=== PATIENT | male | born 1980 | race African-American/Black ===

== ENCOUNTER 2017-05-18 12:26 | Inpatient (IN) | payer BC, MEDICAID, SELFPAY ==
[~2017-05-18] VITALS: Ht 182.9 cm; Wt 92.7 kg
[2017-05-18 13:49] LABS: MEAN CORPUSCULAR HEMOGLOBIN 29.6 pg (27.0-33.0); MEAN CORPUSCULAR VOLUME 87.2 fl (80.0-96.0); RED CELL DISTRIBUTION WIDTH 12.8 % (11.5-14.5); WHITE BLOOD COUNT 5.9 K/mm3 (4.0-10.0)
[2017-05-18 14:18] LABS: METHADONE URINE NEGATIVE (NEGATIVE)
[2017-05-18 14:23] LABS: ALBUMIN 4.1 GM/DL (3.2-5.2); ALBUMIN/GLOBULIN RATIO 1.32 (1.00-1.93); ALKALINE PHOSPHATASE 67 U/L (45-117); ALT/SGPT 25 U/L (12-78); ANION GAP 9 MEQ/L (8-16); AST/SGOT 9 U/L (15-37); BILIRUBIN,DIRECT 0.1 MG/DL (0.0-0.2); BILIRUBIN,TOTAL 0.4 MG/DL (0.2-1.0); BLOOD UREA NITROGEN 9 MG/DL (7-18); CALCIUM LEVEL 9.3 MG/DL (8.5-10.1); CARBON DIOXIDE LEVEL 27 MEQ/L (21-32); CHLORIDE LEVEL 106 MEQ/L (98-107); CREATININE FOR GFR 1.32 MG/DL (0.70-1.30); GLOMERULAR FILTRATION RATE > 60.0 (>60); GLUCOSE, FASTING 102 MG/DL (70-105); POTASSIUM SERUM 3.8 MEQ/L (3.5-5.1); SODIUM LEVEL 142 MEQ/L (136-145); TOTAL PROTEIN 7.2 GM/DL (6.4-8.2)
[2017-05-19 01:08] VITALS: BP 171/96
[2017-05-19] MEDS ORDERED: ACETAMINOPHEN TAB 650MG DOSE (2X325MG) PO PRN (01:30)
[2017-05-19] MEDS ORDERED: traZODone 50 MG TAB PO PRN (01:30)
[2017-05-19] MEDS ORDERED: MOM 30ML SUSPENSION UDC PO PRN (01:30)
[2017-05-19] MEDS: MAALOX 30 ML SUSP *UDC PO PRN (01:47)
[2017-05-19 06:24] VITALS: BP 147/65
[2017-05-19] MEDS: LOTRISONE CREAM 15 GM (BETAMETH/CLOTRIMAZOLE) TOP SCH ×2 (09:51→21:34)
[2017-05-19 18:00] VITALS: BP 152/83
[2017-05-19 21:00] VITALS: BP 148/82
[2017-05-20 06:53] VITALS: BP 156/92
[2017-05-20] MEDS: LOTRISONE CREAM 15 GM (BETAMETH/CLOTRIMAZOLE) TOP SCH ×2 (08:19→20:18)
[2017-05-20 18:00] VITALS: BP 145/78
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
[2017-05-21 07:14] VITALS: BP 146/90
[2017-05-21] MEDS: LOTRISONE CREAM 15 GM (BETAMETH/CLOTRIMAZOLE) TOP SCH ×2 (08:14→20:15)
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
[2017-05-21 18:10] VITALS: BP 148/90
[2017-05-22 06:19] VITALS: BP 155/76
[2017-05-22] MEDS: LOTRISONE CREAM 15 GM (BETAMETH/CLOTRIMAZOLE) TOP SCH (08:19)
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
[2017-05-22] MEDS: MAALOX 30 ML SUSP *UDC PO PRN (15:29)
[2017-05-22 18:09] VITALS: BP 143/67
[2017-05-22] MEDS: CLOTRIMAZOLE 1% TOPICAL CREAM 30GM TOP SCH (21:27)
[2017-05-23 06:42] VITALS: BP 147/94
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
[2017-05-23] MEDS: CLOTRIMAZOLE 1% TOPICAL CREAM 30GM TOP SCH (09:33)
[2017-05-23] MEDS ORDERED: CLOTR1CR TOP (10:32)
== END 2017-05-23 11:00 | disposition home or self-care (01) | DRG 754 ==
LOC: M ED 12:26 → M ED INP 19:19 → M PSY 05-19 01:10
PROVIDERS: ADMIT Psychiatry & Neurology Psychiatry; ATTEND Psychiatry & Neurology Psychiatry
DX: F43.21 Adjustment disorder with depressed mood (principal); F32.9 Major depressive disorder, single episode, unspecified; B37.2 Candidiasis of skin and nail; Z91.040 Latex allergy status; Z63.5 Disruption of family by separation and divorce

== ENCOUNTER 2020-12-22 14:54 | Emergency (ER) | payer MEDICAID, SELFPAY ==
[~2020-12-22] VITALS: Ht 182.9 cm; Wt 90.9 kg
[~2020-12-22 14:54] MED LIST: CLOT1CRE27 TOP
[2020-12-22] MEDS ORDERED: KETOROLAC 30 MG/ML 1ML VIAL IV ONE (17:10)
[2020-12-22] MEDS ORDERED: ONDANSETRON 4MG/2ML VIAL IV ONE (17:10)
[2020-12-22] MEDS ORDERED: NS 1,000 ML IV ONE ×2 (17:10→19:10)
--- NOTE | 2020-12-22 17:47 | REP ---
INDICATION: sob. COMPARISON: None. TECHNIQUE: AP portable seated chest FINDINGS: The lung maddox are well inflated there is no pleural effusion, dense consolidation, atelectasis or mass. No significant interstitial changes. The heart, mediastinal hilar contours are normal. The aorta and airway are intact. Bony thorax shows no focal lesion. There is no free air under the diaphragm. IMPRESSION: No acute cardiopulmonary disease. IMPRESSION: See above. <Electronically signed by Nathanael Mar > 12/22/20 [id number]
[2020-12-22 17:59] LABS: BASO % 0.1 % (0.0-1.0); HEMATOCRIT 49.9 % (42.0-52.0); HEMOGLOBIN 16.8 g/dl (13.5-17.5); LYMPH # 0.9 10^3/uL (1.5-5.0); LYMPH % 9.6 % (24.0-44.0); MEAN CORPUSCULAR HEMOGLOBIN 27.9 pg (27.0-33.0); MEAN CORPUSCULAR HGB CONC 33.7 g/dl (32.0-36.5); MEAN CORPUSCULAR VOLUME 82.9 fl (80.0-96.0); MONO # 0.3 10^3/uL (0.0-0.8); NEUTROPHILS # 8.5 10^3/uL (1.5-8.5); NEUTROPHILS % 86.6 % (36.0-66.0); PLATELET COUNT, AUTOMATED 247 10^3/uL (150-450); RED BLOOD COUNT 6.02 10^6/uL (4.30-6.10); WHITE BLOOD COUNT 9.8 10^3/uL (4.0-10.0)
[2020-12-22] MEDS ORDERED: METOCLOPRAMIDE INJ 10MG/2ML VIAL (J2765 PER 1) IV ONE (18:25)
[2020-12-22 18:28] LABS: ALBUMIN 4.5 GM/DL (3.2-5.2); ALT/SGPT 31 U/L (12-78); BILIRUBIN,DIRECT 0.2 MG/DL (0.0-0.2); BILIRUBIN,TOTAL 0.6 MG/DL (0.2-1.0); BLOOD UREA NITROGEN 14 MG/DL (7-18); CARBON DIOXIDE LEVEL 22 MEQ/L (21-32); CHLORIDE LEVEL 108 MEQ/L (98-107); CREATININE FOR GFR 1.44 MG/DL (0.70-1.30); GLOMERULAR FILTRATION RATE > 60.0 (>60); GLUCOSE, FASTING 112 MG/DL (70-100); LIPASE 69 U/L (73-393); POTASSIUM SERUM 3.8 MEQ/L (3.5-5.1); SODIUM LEVEL 139 MEQ/L (136-145); TOTAL PROTEIN 7.8 GM/DL (6.4-8.2)
[2020-12-22] MEDS ORDERED: ISOVUE-370 76% 100ML VIAL As Ordered ONE (18:47)
[2020-12-22] MEDS ORDERED: PROMETHAZINE INJ 25 MG/ML VIAL (J2550) IV ONE (19:15)
--- NOTE | 2020-12-22 20:30 | REPVR ---
PROCEDURE INFORMATION: Exam: CT Abdomen And Pelvis With Contrast Exam date and time: 12/22/2020 7:48 PM Age: 40 years old Clinical indication: Abdominal pain; Localized; Left lower quadrant (llq); Additional info: Llq pain TECHNIQUE: Imaging protocol: Computed tomography of the abdomen and pelvis with contrast. Radiation optimization: All CT scans at this facility use at least one of these dose optimization techniques: automated exposure control; mA and/or kV adjustment per patient size (includes targeted exams where dose is matched to clinical indication); or iterative reconstruction. Contrast material: ISOVUE 370; Contrast volume: 100 ml; Contrast route: INTRAVENOUS (IV); COMPARISON: No relevant prior studies available. FINDINGS: Liver: Normal. No mass. Gallbladder and bile ducts: Normal. No calcified stones. No ductal dilation. Pancreas: Normal. No ductal dilation. Spleen: Normal. No splenomegaly. Adrenal glands: Normal. No mass. Kidneys and ureters: Normal. No hydronephrosis. Stomach and bowel: Unremarkable. No obstruction. No mucosal thickening. Appendix: Normal appendix. Intraperitoneal space: Unremarkable. No free air. No significant fluid collection. Vasculature: Unremarkable. No abdominal aortic aneurysm. Lymph nodes: Unremarkable. No enlarged lymph nodes. Urinary bladder: Unremarkable as visualized. Reproductive: Unremarkable as visualized. Bones/joints: Unremarkable. No acute fracture. Soft tissues: Small fat containing umbilical hernia. IMPRESSION: No acute abnormality. Electronically signed by: Grey Chahal On 12/22/2020 20:31:05 PM
[2020-12-22] MEDS ORDERED: ONDA4TAB6 PO (20:43)
[2020-12-22 21:10] VITALS: BP 142/80
== END 2020-12-22 21:13 | disposition home or self-care (01) ==
LOC: M ED 14:54
DX: N17.9 Acute kidney failure, unspecified (principal); F33.9 Major depressive disorder, recurrent, unspecified; F41.9 Anxiety disorder, unspecified; F63.9 Impulse disorder, unspecified
CPT/HCPCS: 71045; 74177; 80048; 80076; 81001; 83690; 85025; 96361; 96374; 96375; 99284; J1885; J2405; J2765; Q9967; U0003

== ENCOUNTER 2020-12-24 09:48 | Emergency (ER) | payer MEDICAID, SELFPAY ==
[~2020-12-24] VITALS: Ht 182.9 cm; Wt 90.9 kg
[~2020-12-24 09:48] MED LIST changes: +ONDA4TAB6 PO
[2020-12-24] MEDS ORDERED: NS 1,000 ML IV ONE (10:05)
[2020-12-24] MEDS ORDERED: HALOPERIDOL 5MG/ML VIAL (J1630 PER 1) IV ONE (10:10)
--- OUTSIDE RECORDS SUMMARY | 2020-12-24 10:14 | CCD ---
Author Author [facility] Organization [facility] Address Unknown Phone Unavailable Support Name Relationship Address Phone CRISTAL ROCA Next Of Kin [address] [place] [address] KALLIE CHIROPRATICE Next Of Kin [address] [place] [address] DWAYNE VAILRA Next Of Kin [address] [place] [address] ATLAS [employer] Next Of Kin [place], [place] [id number] UE Next Of Kin Unknown Unavailable AI VAIL Next Of Kin [address] [facility], [address] Re-disclosure Warning The records that you are about to access may contain information from federally-assisted alcohol or drug abuse programs. If such information is present, then the following federally mandated warning applies: This information has been disclosed to you from records protected by federal confidentiality rules (42 CFR part 2). The federal rules prohibit you from making any further disclosure of this information unless further disclosure is expressly permitted by the written consent of the person to whom it pertains or as otherwise permitted by 42 CFR part 2. A general authorization for the release of medical or other information is NOT sufficient for this purpose. The Federal rules restrict any use of the information to criminally investigate or prosecute any alcohol or drug abuse patient.The records that you are about to access may contain highly sensitive health information, the redisclosure of which is protected by Article 27-F of the [place] State Public Health law. If you continue you may have access to information: Regarding HIV / AIDS; Provided by facilities licensed or operated by the [facility] of Mental Health; or Provided by the [facility] for People With Developmental Disabilities. If such information is present, then the following [facility] mandated warning applies: This information has been disclosed to you from confidential records which are protected by state law. State law prohibits you from making any further disclosure of this information without the specific written consent of the person to whom it pertains, or as otherwise permitted by law. Any unauthorized further disclosure in violation of state law may result in a fine or usp sentence or both. A general authorization for the release of medical or other information is NOT sufficient authorization for further disc losure. Family History Family Member Name Family Member Gender Family Member Status Date o f Status Description Data Source(s) Unknown Female Problem MEDENT ([facility]) Unknown Unknown Problem [facility] ([facility]) Insurance Providers Payer name Policy type / Coverage type Policy ID Covered alliance party ID Covered alliance party's relationship to [place] Policy [place] Plan Information SELF PAY ONLY [id number] SP [id number] ELOISA [id number] SP [id number] MEDICAID [id number] SP [id number] [place] [id number] SPO VYS [id number] [place] WATN PPO 302/[id number] BS [place] Medigap Part B Family Dependent BS [place] Medigap Part B Self BS [place] Commercial Family Dependent [place] BC [id number] SPO [id number] UNITED HEALTHCARE MEDICAID MCD HMO [id number] S [id number] [facility] Health Maintenance Organization (HMO) Self SREE DISCT 40% OF CAP CHGS SP UNAVAILABLE S UNAVAILABLE SELF PAY SP [id number] S [id number] Results ID Date Data Source [id number] 06/03/2020 12:00:00 AM EDT [facility] Name Value Range Interpretation Code Description Data Nuria rce(s) Supporting Document(s) SARS coronavirus 2 RNA [Presence] in Res piratory specimen by TESSIE with probe detection [facility] This lab was ordered by Chlee Gleason and reported by [facility]. Procedure
--- OUTSIDE RECORDS SUMMARY | 2020-12-24 10:17 | CCD ---
Author Author [facility] Organization [facility] Address Unknown Phone Unavailable Support Name Relationship Address Phone CRISTAL ROCA Next Of Kin [address] [place] [address] KALLIE CHIROPRATICE Next Of Kin [address] [place] [address] DWAYNE VAILRA Next Of Kin [address] [place] [address] [employer] Next Of Kin [place], [place] [id number] UE Next Of Kin Unknown Unavailable AI VAIL Next Of Kin [address] [facility], [address] Re-disclosure Warning The records that [...] is protected by Article 27-F of the [place] Public Health law. If you continue you may have access to information: Regarding HIV / AIDS; Provided by facilities licensed or operated by the [facility] Office of Mental Health; or Provided by the [facility] Office for People With Developmental Disabilities. If such information is present, then the following [facility] mandated warning applies: This information has been [...] law may result in a fine or halfway sentence or both. A general authorization for [...] type / Coverage type Policy ID Covered constitution party ID Covered constitution party's relationship to [place] Policy [place] Plan Information SELF PAY ONLY [id number] SP [id number] ELOISA [id number] SP [id number] MEDICAID [id number] SP [id number] [employer] [place] [id number] SPO VYS [id number] BCBS [place] WATN PPO 302/[id number] BS [place] Medigap Part B Family Dependent BS [place] Medigap Part B Self BS [place] Commercial Family Dependent BC[place] BC [id number] SPO [id number] [employer] MEDICAID [id number] HMO [id number] S [id number] [facility] Maintenance Organization (HMO) Self SREE DISCT 40% OF CAP CHGS SP UNAVAILABLE S UNAVAILABLE SELF PAY SP [id number] S [id number] Results ID Date Data Source [id number] 06/03/2020 12:00:00 AM EDT [facility] Name Value Range Interpretation Code Description Data Nuria rce(s) Supporting Document(s) SARS coronavirus 2 RNA [Presence] in Res piratory specimen by TESSIE with probe detection [facility] This lab was ordered by Chele Gleason and reported by [facility]. Procedure
[2020-12-24 10:59] LABS: ALBUMIN 4.3 GM/DL (3.2-5.2); BILIRUBIN,DIRECT 0.2 MG/DL (0.0-0.2); BILIRUBIN,TOTAL 0.7 MG/DL (0.2-1.0); TOTAL PROTEIN 7.5 GM/DL (6.4-8.2)
[2020-12-24 12:04] VITALS: BP 184/81
[2020-12-24 12:30] LABS: AMPHETAMINES LEVEL URINE NEGATIVE (NEGATIVE); BARBITURATES URINE NEGATIVE (NEGATIVE); BENZODIAZEPINES URINE NEGATIVE (NEGATIVE); CANNABINOIDS URINE POSITIVE (NEGATIVE); COCAINE METABOLITE URINE NEGATIVE (NEGATIVE); METHADONE URINE NEGATIVE (NEGATIVE); OPIATES URINE NEGATIVE (NEGATIVE); PHENCYCLIDINE URINE NEGATIVE (NEGATIVE)
== END 2020-12-24 12:13 | disposition home or self-care (01) ==
LOC: M ED 09:48
DX: R11.10 Vomiting, unspecified (principal); Z91.040 Latex allergy status
CPT/HCPCS: 80047; 80076; 80307; 83690; 96361; 96374; 99284; J1630

== ENCOUNTER → 2021-01-25 | Outpatient (CLI) | payer MEDICAID ==
--- NOTE | 2021-01-25 10:12 | REPVR ---
PROCEDURE INFORMATION: Exam: MR Lumbar Spine Without Contrast. Exam date and time: 01/25/2021 9:47 AM Age: 40 years old Clinical indication: Low back pain TECHNIQUE: Imaging protocol: Multiplanar magnetic resonance images of the lumbar spine without contrast. COMPARISON: No relevant prior studies available. 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 Spinal epidural space: There is no evidence of epidural masses or hemorrhage. Spinal cord: The conus medullaris is normal. L1-L2: There is no significant degenerative disc herniation.The spinal canal and neural foramina are patent and without significant stenosis. L2-L3: There is no significant degenerative disc herniation.The spinal canal and neural foramina are patent and without significant stenosis. L3-L4: There is no significant degenerative disc herniation.The spinal canal and neural foramina are patent and without significant stenosis. L4-L5: There is a mild diffuse posterior bulge causing mild effacement of the thecal sac.The facet joints demonstrate mild degenerative hypertrophy and sclerosis.There is thickening of the ligamentum flavum.There is mild spinal canal narrowing, with an AP canal dimension of 10 mm. There is mild right foraminal stenosis. There is moderate left foraminal stenosis. L5-S1: Moderately reduced in height and T2 signal indicating degeneration. Mild degenerative endplate changes. Large posterior central herniation with annular tear causing moderate spinal canal stenosis with compression and posterior displacement of the thecal sac.The facet joints demonstrate mild degenerative hypertrophy and sclerosis.There is no evidence of foraminal stenosis. Soft tissues: The prevertebral soft tissues appear normal. IMPRESSION: 1. MRI of the lumbar spine reveals multilevel degenerative spondylitic changes and degenerative disc disease, most significant at L5-S1 level with moderate spinal canal stenosis as described above. 2. 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 Electronically signed by: Clifton Gibbs On 01/25/2021 10:12:17 AM
== END ==
LOC: M PLARAD 08:42
PROVIDERS: ATTEND Physician Assistant
DX: M51.37 Other intervertebral disc degeneration, lumbosacral region (principal)

== ENCOUNTER → 2021-05-02 | Outpatient (CLI) | payer MEDICAID, OTHER ==
[2021-05-02 10:48] LABS: INR 0.85; PROTHROMBIN TIME 11.8 SECONDS (12.5-14.3)
[2021-05-02 10:49] LABS: PARTIAL THROMBOPLASTIN TIME 27.8 SECONDS (24.2-38.5)
[2021-05-02 10:50] LABS: COLLAGEN EPINEPHRINE 93 SECONDS (74-162)
== END ==
LOC: M LAB 10:01
PROVIDERS: ATTEND Physician Assistant
DX: M51.37 Other intervertebral disc degeneration, lumbosacral region (principal)

== ENCOUNTER → 2022-04-06 | Outpatient (CLI) | payer OTHER | LOC: M PLAIMG 09:02 | PROVIDERS: ATTEND Physician Assistant | DX: M51.17 Intervertebral disc disorders with radiculopathy, lumbosacral region (principal) ==

== ENCOUNTER → 2022-06-09 | Outpatient (CLI) | payer OTHER ==
[2022-06-09 14:10] LABS: PLATELET COUNT, AUTOMATED 246 10^3/uL (150-450)
[2022-06-09 14:23] LABS: INR 0.89; PROTHROMBIN TIME 12.4 SECONDS (12.7-14.5)
== END ==
LOC: M LAB 13:24
PROVIDERS: ATTEND Physician Assistant
DX: M51.17 Intervertebral disc disorders with radiculopathy, lumbosacral region (principal)

== ENCOUNTER → 2023-03-20 | Outpatient (CLI) | payer OTHER | LOC: M RAD 12:17 | PROVIDERS: ATTEND Physician Assistant | DX: M51.37 Other intervertebral disc degeneration, lumbosacral region (principal) ==

== ENCOUNTER → 2025-02-19 | Outpatient (REF) | payer OTHER ==
[~2025-02-19] MED LIST changes: +ONDA-282 PO; -ONDA4TAB6 PO
== END ==
LOC: M LAB REF 11:26
PROVIDERS: ATTEND Physician Assistant
DX: B34.9 Viral infection, unspecified (principal)